=== PATIENT | female | born 1985 | race African-American/Black ===

== ENCOUNTER 2016-09-22 11:23 | Emergency (ER) | payer OTHER | END 2016-09-22 12:22 | disposition home or self-care (01) | LOC: ER 11:23 | DX: M25.462 Effusion, left knee (principal); F17.200 Nicotine dependence, unspecified, uncomplicated; I10 Essential (primary) hypertension; W19.XXXA Unspecified fall, initial encounter | CPT/HCPCS: 73700-LT; 96372; 99284; J1885 ==